=== PATIENT | male | born 1970 | race Caucasian/White ===

== ENCOUNTER 2023-10-29 06:20 | Day surgery (SDC) | payer OTHER ==
[~2023-10-29] VITALS: Ht 172.7 cm; Wt 109.2 kg
[~2023-10-29 06:20] MED LIST: AMLO5TAB66 PO; DULA1.5P SQ; HYDR25TA PO; IBUP-1493 PO; INSLAN SQ; LOSA-382 PO; METF-1211 PO; PANT-31 PO; SERT-439 PO; SODIUM CHLORIDE 0.9% 1,000 ML ONE
[2023-10-29] MEDS ORDERED: PROPOFOL 1% 20 ML VIAL IVP ONE (06:21)
[2023-10-29] MEDS ORDERED: LIDOCAINE/PF 2% 5 ML VIAL IM ONE (06:21)
[2023-10-29] MEDS ORDERED: GLYCOPYRROLATE 0.2 MG/ML VIAL IM ONE (06:21)
[2023-10-29 07:01] LABS: GLUCOMETER DEV NAME(LOC) SDS.; GLUCOSE,POINT OF CARE 110 MG/DL (70-110)
[2023-10-29] MEDS ORDERED: SODIUM CHLORIDE 0.9% 1,000 ML IV ONE (10:15)
== END 2023-10-29 11:25 | disposition home or self-care (01) ==
LOC: SURGERY 06:20
PROVIDERS: ATTEND Internal Medicine Gastroenterology
DX: D12.3 Benign neoplasm of transverse colon (principal); K57.30 Diverticulosis of large intestine without perforation or abscess without bleeding; K64.9 Unspecified hemorrhoids; K25.9 Gastric ulcer, unspecified as acute or chronic, without hemorrhage or perforation; I10 Essential (primary) hypertension; E11.9 Type 2 diabetes mellitus without complications; G47.33 Obstructive sleep apnea (adult) (pediatric); K29.70 Gastritis, unspecified, without bleeding; Z98.890 Other specified postprocedural states; Z79.899 Other long term (current) drug therapy
CPT/HCPCS: 45385; 43239; 82962; 88305; 88312; 88313; C1769; J2704; J3490 ×2; J7030